=== PATIENT | female | born 1995 | race Caucasian/White ===

== ENCOUNTER 2022-06-17 10:08 | Emergency (ER) | payer BC, SELFPAY ==
[2022-06-17 10:32] VITALS: BP 143/96; PULSE 99; RESP 16; TEMP 36.6; O2SAT 100
--- NOTE | 2022-06-17 11:20 | ED.URI ---
HPI - URI/Sore Throat General Chief Complaint: Upper Respiratory Infection Stated Complaint: sore throat,tonsils swollen,headache,fatigue Time Seen by Provider: 06/17/22 11:20 History of Present Illness HPI Narrative: 26 y/o female presented for c/o sore throat and swollen tonsils for about 3 days. Endorses mild nasal drainage and ear pressure. Denies sick contacts. Denies sob, wheezing, n/v/d/f/c. Not taking anything for symptoms. Review of Systems Review of Systems: per HPI Exam Narrative: GENERAL: well-appearing EYES: conjunctivae clear ENT: Mucous membranes moist. TMs pearly falcon with normal light reflex bilaterally; no tragal tenderness. Oropharynx not erythematous without lesions. No drooling, no hoarseness, no trismus, uvula midline. No tripod positioning, hot potato voice, or soft palate swelling. NECK: Supple. No lymphadenopathy CHEST: Clear to auscultation, breath sounds equal. HEART: Regular rate and rhythm. No murmur heard. SKIN: Warm, dry, no rash. NEURO: Alert and oriented x3. Course Course Emergency Course: Patient is aware of diagnosis, understands and agrees to treatment plan. Anticipatory guidance given. Patient agrees to follow-up as directed and is aware of reasons to seek care at the emergency department. Portions of this record may have been created with voice recognition software Level of Care: Express Care Visit Vital Signs Vital signs: Vital Signs Temperature 97.9 F 06/17/22 10:32 Pulse Rate 99 06/17/22 10:32 Respiratory Rate 16 06/17/22 10:32 Blood Pressure 143/96 H 06/17/22 10:32 Pulse Oximetry 100 06/17/22 10:32 Temperature 97.9 F 06/17/22 10:32 Pulse Rate 99 06/17/22 10:32 Respiratory Rate 16 06/17/22 10:32 Blood Pressure 143/96 H 06/17/22 10:32 Pulse Oximetry 100 06/17/22 10:32 MDM - URI/Sore Throat MDM Narrative Medical decision making narrative: Negative strep. Results reviewed with patient. Advised supportive measures and signs/symptoms to go to the ER. Pt is appropriate for outpt treatment and f/u. Differential Diagnosis Differential diagnosis: Likely upper respiratory infection, viral infection and pharyngitis Lab Data Labs: Strep Screen Presumptive Negative *(Reference Range: Negative)* Discharge Plan Discharge Clinical Impression: Pharyngitis Patient Disposition: Home, Self-Care Condition: Stable Instructions: Pharyngitis (ED) Additional Instructions: Rapid strep swab was negative today You will be notified in a few days if the culture comes back positive for strep, and appropriate antibiotics will be called in at that time. if symptoms are due to a viral illness, it is not treated with antibiotics. Viral symptoms can be present for up to 10-14 days. Recommend Flonase spray and Zyrtec for sinus congestion Cough syrup as needed Tylenol every 8 hours as needed for pain/fever Soft foods, cool liquids, warm tea. Gargle with warm saltwater twice a day. Chloraseptic spray and throat lozenges. Rest and stay hydrated. --Follow up with your PCP if symptoms are not improving, or sooner if symptoms are worsening. Go to the ER immediately if you cannot swallow your saliva, trouble breathing/wheezing, throat swelling, pain is persistent and severe Follow-up/Referrals: PHYSICIAN,AUTOMOTIVE [employer]LLISION REPAIR INSTRUCTOR [Primary Care Provider] - Time of Disposition: 11:26
== END 2022-06-17 11:29 | disposition home or self-care (01) ==
PROVIDERS: Emergency Provider Nurse Practitioner Family
DX: J02.9 Acute pharyngitis, unspecified (principal)
CPT/HCPCS: 87081; 87880; 99213; G0463